=== PATIENT | female | born 1960 | race Caucasian/White ===

== ENCOUNTER 2016-12-20 09:18 | Day surgery (SDC) | payer BC ==
[2016-12-17 21:17] LABS: BASOPHILS 0.5 %; BASOPHILS ABSOLUTE 0.03 10/3/uL (0.0-0.16); EOSINOPHILS 2.5 %; EOSINOPHILS ABSOLUTE 0.15 10/3/uL (0.0-0.53); HEMATOCRIT 39.9 % (36.0-48.0); HEMOGLOBIN 12.9 g/dL (12.0-16.0); IMMATURE GRANULOCYTES 0.3 %; IMMATURE GRANULOCYTES ABSOLUTE 0.02 10/3/uL (0.0-0.11); LYMPHOCYTES 27.8 %; LYMPHOCYTES ABSOLUTE 1.65 10/3/uL (0.67-4.30); MEAN CORPUS HGB CONC 32.3 g/dL (32.0-36.0); MEAN CORPUSCULAR VOLUME 95.9 fL (80-100); MEAN PLATELET VOLUME 10.1 fL (9.2-13.0); MONOCYTES 5.4 %; MONOCYTES ABSOLUTE 0.32 10/3/uL (0.21-1.20); NEUTROPHILS 63.5 %; NEUTROPHILS ABSOLUTE 3.76 10/3/uL (2.02-8.40); PLATELET COUNT 346 10/3/uL (150-400); RBC DISTRIBUTION WIDTH 13.5 % (12.0-16.0); RED CELL COUNT 4.16 10/6/uL (4.0-5.6); WHITE BLOOD CELLS 5.9 10/3/uL (4.5-10.5)
[2016-12-17 21:18] LABS: MANUAL DIFF NO %
[2016-12-17 21:36] LABS: BUN (BLOOD UREA NITROGEN) 26 MG/DL (6-23); CALCIUM, SERUM 9.3 MG/DL (8.5-10.4); CHLORIDE, SERUM 104 MMOL/L (96-112); CO2 (CARBON DIOXIDE) 26 MMOL/L (24-34); CREATININE 1.25 MG/DL (0.55-1.02); GFR AFRICAN AMERICAN 56 ML/MIN (>=60); GFR NON AFRICAN AMERICAN 49 ML/MIN (>=60); GLUCOSE, SERUM 94 MG/DL (60-99); POTASSIUM, SERUM 4.5 MMOL/L (3.5-5.3); SODIUM, SERUM 142 MMOL/L (135-148)
--- NOTE | ~2016-12-20 | OP ---
Record Of Operation [facility] [address] [place]. [address] NAME: SUKHWINDER CAMACHO : 64 STATUS : [facility]#: [id number] AGE: 56 ADM/REG DATE : 12/20/16 MR#: [id number] REPORT SERV DATE: 12/20/16 DICTATED BY: OSCAR LARA DATE: 12/20/16 REPORT STATUS : Draft TRANSCRIBED BY: MODL DATE: 12/20/16 DATE OF PROCEDURE: 12/20/2016 PREOPERATIVE DIAGNOSIS: Left cystic mass. POSTOPERATIVE DIAGNOSIS: Benign left ovarian mass. PROCEDURES: 1. Laparoscopic lysis of adhesions, CPT code 35354. 2. Laparoscopic left salpingo-oophorectomy. SENIOR [employer] SPECIALIST: Dr. Paty Luna. ESTIMATED BLOOD LOSS: 50 mL. FLUIDS IN: 1800 mL of crystalloid. COMPLICATIONS: None. FINDINGS AND INDICATIONS: This is a 56-year-old female, who has previously had a hysterectomy and questions whether both ovaries have previously been removed. She was noted to have a cystic mass in the pelvis and pain. She is taken to the operating room for removal. Intraoperatively, the uterus was removed. There was no evidence of any remaining tissue on the right. The left ovary was noted and was densely adherent to the colon as well as the ureter. Extensive lysis of adhesions was required to remove this ovary. The ureter was displaced laterally. The colon was displaced medially. At the completion of the procedure, air was placed through the colon to ensure there was no damage and a cystoscopy was performed to ensure that she had excellent bilateral ureteral jets and no evidence of bladder defect. The mass did rupture with removal. It was examined on the back table and appeared to be benign. PROCEDURE IN DETAIL: The patient was taken to the operating room. She was placed in supine position for administration of general anesthesia. She was then placed in dorsal lithotomy position and prepped and draped in usual sterile fashion. An incision was made approximately 25 cm above the pubic symphysis and taken down to the underlying layer of fascia. The fascia was grasped with two sutures of 0 Vicryl, tented up, and entered sharply. The peritoneum was then tented up, entered sharply, and a laparoscopic trocar was placed under direct visualization. The abdominal cavity was insufflated with CO2. Two additional 8 mm trocars were placed, one additional 12 mm trocar was placed. The patient was then docked to the laparoscopic robotic instrument and the remainder of the procedure was performed via the da Ricardo. The above findings noted. Pelvic washings were taken. The left right side was inspected with no remaining ovarian tissue. There was some lysis of adhesions in the right colon to get an adequate visualization. The left colon was densely adherent to the sidewall and this was taken down with sharp dissection. The retroperitoneal space was opened. The ureter and pelvic vessels were clearly identified and the colon was densely adherent to the ovary, which was lysed. These adhesions were taken down with sharp Record Of Operation [facility] [address] [facility] [place]. [address] NAME: SUKHWINDER CAMACHO : 64 STATUS : [facility]#: [id number] AGE: 56 ADM/REG DATE : 12/20/16 MR#: [id number] REPORT SERV DATE: 12/20/16 DICTATED BY: OSCAR LARA DATE: 12/20/16 REPORT STATUS : Draft TRANSCRIBED BY: BETHANY DATE: 12/20/16 dissection and encompassed greater than 50% of the entire operative time to remove. The colon was ultimately displaced medially. The ureter was also densely adherent to the mass and the ureter was taken from the medial leaf of the broad ligament and displaced laterally and ultimately the mass was removed. It was also adherent to the bladder. The mass was placed into an EndoCatch bag, and delivered through the trocar sites. The pelvis was then irrigated with copious amounts of warm water. All pedicles were inspected and found to be hemostatic. The laparoscopic instruments were removed. The gas was expelled from the abdomen. The initial incision was closed with 0 Vicryl in the fascia. The 12 mm port was also closed with 0 Vicryl in the fascia, and the 8 mm ports were closed with 4-0 Vicryl at the skin and Dermabond was placed. Postprocedure, a cystoscopy was performed with excellent bilateral ureteral jets. No evidence of bladder defect. At the completion of the procedure, the anesthesia was reversed. The patient was extubated and brought to the recovery room in stable condition. EMIR/BETHANY Oscar Lara M.D. / [id number] CC: Rakesh Aaron NP
[~2016-12-20 09:18] MED LIST: AMB5 PO; LISINOPRIL40 MG PO; PCET PO; PRIN20 PO; PROTONIX20 MG PO; TRAZ50 PO; XANAX1 MG PO
== END 2016-12-20 17:34 | disposition home or self-care (01) ==
LOC: SDC 09:18
PROVIDERS: Obstetrics & Gynecology Gynecologic Oncology
PROC: 0UT14ZZ Resection of Left Ovary, Percutaneous Endoscopic Approach (ICD-10-PCS; principal; 2016-12-20 10:30)
PROC: 0UT64ZZ Resection of Left Fallopian Tube, Percutaneous Endoscopic Approach (ICD-10-PCS; 2016-12-20 10:30)
DX: D27.1 Benign neoplasm of left ovary (principal); J45.909 Unspecified asthma, uncomplicated; K21.9 Gastro-esophageal reflux disease without esophagitis; I12.9 Hypertensive chronic kidney disease with stage 1 through stage 4 chronic kidney disease, or unspecified chronic kidney disease; N18.9 Chronic kidney disease, unspecified; T75.3XXA Motion sickness, initial encounter; J18.9 Pneumonia, unspecified organism; Z79.891 Long term (current) use of opiate analgesic; Z79.899 Other long term (current) drug therapy; Z90.49 Acquired absence of other specified parts of digestive tract; Z98.890 Other specified postprocedural states; Z90.711 Acquired absence of uterus with remaining cervical stump
CPT/HCPCS: 36415; 80048; 85025; 86850; 86900; 86901; 88112; 88305; 93005; A9270-GY; J0690; J0694; J1170; J2250; J2270; J2405; J2550; J2710; J2795; J3010